=== PATIENT | male | born 1985 ===

== ENCOUNTER 2021-05-25 03:35 | Emergency (ER) | payer SELFPAY ==
[~2021-05-25] VITALS: Ht 188 cm; Wt 87.0 kg
--- NOTE | 2021-05-25 03:50 | NUR ---
pt came into ed this am due to sob, states the whole family has been sick and he woke up feeling as though he couldnt get a good breath. crackles noted upon auscultation. pt placed on monitoring, provided warm blankets for comfort. wctm. Patient is resting comfortably in bed. Bed in lowest, rails engaged, call light on lap. Vital Signs within normal limits. WCTM.
--- NOTE | 2021-05-25 05:07 | NUR ---
radiology at [facility], pt nad, resting on gurney, denies additional questions or needs, no change in condition, wctm.
--- NOTE | 2021-05-25 06:25 | NUR ---
Patient given discharge instructions and they have confirmed that they understand the instructions. Patient ambulatory with steady gait. NAD, all questions answered appropriately, denies additional needs at this time. No personal belongings left in room after discharge.
[2021-05-25 06:45] VITALS: BP 124/86
== END 2021-05-25 06:47 | disposition home or self-care (01) ==
LOC: ED 06:41
DX: R05 Cough (principal); R06.02 Shortness of breath; R07.89 Other chest pain
CPT/HCPCS: 71045; 99283